=== PATIENT | female | born 1960 | race Caucasian/White ===

== ENCOUNTER → 2016-09-12 | Day surgery (SDC) | payer OTHER ==
[~2016-09-12] MED LIST: BUPIVACAINE HCL PF 0.5% 10 ML VIAL ONE; HYDR-2768 PO; KETOROLAC TROMETHAMINE 60 MG/2 ML (IM) VIAL IM ONE; LACTATED RINGER'S 1000 ML INJ 1,000 ML ONE; LISI-360 PO; MEPERIDINE HCL 25 MG/ML VIAL ONE; MIDAZOLAM HCL 2 MG/2 ML VIAL ONE; ONDANSETRON HCL 4 MG/2 ML VIAL IV PUSH ONE; PROPOFOL 200 MG/20 ML AMP IV ONE; ceFAZolin 2 GM PREMIX 50 ML ONE
--- NOTE | 2016-09-12 13:11 | TN ---
cc: GAVIOTA URIBE DATE OF SURGERY: 09/12/2016 PRINCIPAL DIAGNOSIS Recurrent lipoma of the left axilla. POSTOPERATIVE DIAGNOSIS Recurrent lipoma of the left axilla. PROCEDURE PERFORMED Excision of recurrent left axillary lipoma. SURGEON Gaviota Uribe MD ANESTHESIA General via LMA device. INDICATION The patient is a 56-year-old who is now 1 year status post excision of a large left axillary lipoma. Approximately 6 months later, she developed recurrence which was documented by imaging. Ultrasound biopsy was consistent with fatty tissue but because of enlargement and symptoms, the patient desires excision. By imaging, the current size is 5 x 4 cm and because of its rapid rate growth, I felt that excision was indicated. FINDINGS AT SURGERY A 5 cm lipoma was identified between the axillary vein and axillary artery. It was well encapsulated. PROCEDURE PERFORMED After informed consent was obtained and site verification was performed, the patient was brought to the major operating room where she underwent general anesthesia via an LMA device. She was given a single dose of IV Ancef and sequential compression hose were placed. The left axillary area was prepped and draped in sterile fashion. The previous axillary incision was anesthetized and incised sharply and electrocautery dissection was performed until the clavipectoral fascia was divided and the level I axilla was entered. The latissimus muscle was bulging and there was some suggestion of an intramuscular lipoma. The muscle was split along its fibers but there was no evidence of the fatty mass. Just medial to the muscle tendon however, fatty bulging was identified and this was bluntly dissected free from surrounding structures and identified as an encapsulated lipoma. Electrocautery was used to release some of the capsule and the pedicle of the lipoma was identified arising from between the axillary artery an axillary vein. There was scarring in this area and a less than 1 cm rim of fatty tissue was left in place as the lipoma was amputated. Good hemostasis was noted and the lipoma was oriented with one short suture superiorly, two sutures anteriorly, and one long suture laterally. The wound was then closed after reapproximating the latissimus fascia using a running 3-0 Vicryl suture. Subcutaneous layer of interrupted 3-0 Vicryl was then placed and the skin was closed with a 4-0 Monocryl subcuticular suture. Steri-Strips and a sterile dressing were applied. The patient tolerated the procedure well with minimal blood loss and she was extubated in the operating room and brought to recovery room in good condition. All sponge and needle counts were correct at the conclusion of the case. MD FÉLIX Paredes/buddy /11:31 AM /1:01 PM
== END | disposition home or self-care (01) ==
LOC: ESDC 08:27
PROVIDERS: ATTEND Surgery
DX: D17.1 Benign lipomatous neoplasm of skin and subcutaneous tissue of trunk (principal)
CPT/HCPCS: 00400; 21554; 88304; J0690; J1885; J2175; J2250; J2405; J3010; J7120

== ENCOUNTER 2018-03-31 06:24 | Observation (INO) ==
[2018-03-31] MEDS ORDERED: Gelatin Size 100 Topical Foam ONE (07:08)
[2018-03-31] MEDS ORDERED: Artificial Tears Opth Oint 3.5 GM Tube ONE ×2 (07:08→07:22)
[2018-03-31] MEDS ORDERED: Thrombin Topical Soln 5,000 UNIT Vial TOPICAL ONE (07:08)
[2018-03-31] MEDS ORDERED: ceFAZolin 1 GM Premix Inj 2 GM/100 ML PIGGYBACK IV.SIG ONE (07:08)
[2018-03-31] MEDS ORDERED: Sodium Chlor 0.9% Inj 250 ML ONE (07:15)
[2018-03-31] MEDS ORDERED: Metoprolol Tartrate 25 MG Tablet PO SCH (07:23)
[2018-03-31] MEDS ORDERED: Chlorhexidine Gluconate 2% 1 Pack (2 Cloths) TOPICAL SCH (07:23)
[2018-03-31] MEDS ORDERED: Propofol Inj 500 MG/50 ML Vial ONE (07:23)
[2018-03-31] MEDS ORDERED: fentaNYL Citrate Inj 250 MCG/5 ML Ampul ONE (07:50)
[2018-03-31] MEDS ORDERED: Vancomycin Inj 1,000 MG in Sodium Chlor 0.9% Inj 250 ML IV.SIG SCH (08:00)
[2018-03-31] MEDS ORDERED: Sodium Chlor 0.9% Inj 500 ML IV.SIG SCH (08:00)
[2018-03-31] MEDS ORDERED: Menthol 5.8 MG Lozenge BUCCAL PRN (09:51)
[2018-03-31] MEDS ORDERED: Morphine Sulfate Inj 2 MG/ML Vial IV.PUSH PRN (09:51)
[2018-03-31] MEDS ORDERED: Bisacodyl 10 MG Supp RECTAL PRN (09:51)
--- NOTE | 2018-03-31 11:58 | P.OP ---
Preoperative Diagnosis: C5-6 disk herniation Postoperative Diagnosis: C5-6 disk herniation Date of procedure: 03/31/18 Procedure: C5-6 anterior cervical discectomy, interbody arthodhesis using PEEK cage filled with autologous bone graft, Simplicity plate and screws Anesthesia: ELIJAH Surgeon: David Vivar MD Sustainability Manager: Marichuy Burnett Pathology: none sent Operation and Findings: INDICATIONS FOR THE PROCEDURE Ms Winter is a 57 year-old female who presented with intractable neck pain and clinical evidence of C6 upper extremity radiculopathy. The patient has failed maximum nonsurgical management including multiple modalities of conservative treatment. A surgical decompression and arthrodhesis were indicated. The [id number] details of the procedure, indications, alternatives, risks and potential complications were fully discussed with the patient. The patient fully understood. All The questions were answered. No guarantees were given. The patient voiced requesting the procedure and provided informed consents. The patient was offered the alternative of delaying the procedure and continuing with nonsurgical management. DETAILS OF THE SURGICAL PROCEDURE After the induction of general anesthesia, endotracheal intubation was performed. A Mendiola catheter, bilateral RADHA hose, and sequential compression devices were placed and kept throughout the procedure. The patient was positioned supine on a Allen table with the head over a gel doughnut. All pressure points were carefully padded with egg crate mattress. The eyes were tapped shut after ointment was applied by the anesthesiologist to prevent corneal abrasion. A Juancarlos hugger was placed over the exposed lower body to maintain control of the core body temperature. The electrophysiological team placed the needles and electrodes in their proper location and baseline SSEP's and motor evoked potentials were registered. The anterior cervical region was prepped and draped in the usual sterile fashion. A localizing x-ray was performed with a C-arm. The surgical procedure was performed in several steps as follow: SURGICAL APPROACH A skin incision was made along the middle cervical crease with a #10 blade. The dissection was carried out through the platysma exposing the sternocleidomastoid muscle. The cervical spine was approached following the fascial layers of the neck just medial to the anterior border of the sternocleidomastoid and carotid sheath by a combination of sharp and dull dissection. The omohyoid muscle was identified and carefully dissected laterally and the deep cervical fascia was carefully opened. The longus colli muscles were retracted to each side of the midline. A marker was placed at the disc space C5-6 and a cross-table lateral x-ray performed with a C-arm. SURGICAL DECOMPRESSION In order to decompress the anterior surface of the spinal cord it was necessary to preform a microsurgical resection of the disk. At this point in the procedure the operating microscope was draped in the usual sterile fashion and brought to the field. The rest of the surgical procedure was performed using microdissection technique with the exception of the closure. Under the operative microscopic, an anterior osteophytic spur was carefully removed using the leksell, and a self-retaining retractor was placed underneath the longus colli muscle. The annulus at C5-6 was incised with a #15 blade and microdiscectomy was then carefully carried out using angled curets and pituitary forceps. The patient had a posterior osteophytic/disk herniation complex which was producing mass affect on the anterior surface of the dural sac. This was carefully drilled with a TPS drill and resected with a think foot plate 2mm kerrison under high magnification. The posterior longitudinal ligament was then elevated with an angled curet and incised with a 15 bladed knife. A careful resection of the posterior longitudinal ligament was carried out using a thin footplate 2 mm Kerrison. The decompression was then carried out laterally, and a bilateral foraminotomy was performed with a 2mm thin foot Kerrison. Then the vertebral bodies above and below the disk space were undercut using a 2 mm thin foot Kerrison. The epidural space was the systematically assessed with a nerve hook in search for disk fragments. An excellent decompression was achieved in both, the dural sac and bilateral exiting nerve roots. The incision was then irrigated with a large amount of antibiotic solution INTERBODY ARTHRODHESIS In order to avoid collapse of the disk space which would result in bilateral foraminal stenosis, and to increase the chances of a successful fusion, it was necessary to place an interbody cage filled with autologous bone. At this point of the procedure, the superior and inferior endplates were then evenly decorticated with a TPS drill. The use of a drill in combination with a curette allowed me to systematically remove the cartilaginous endplates, exposing healthy bone for the interbody arthrodesis. forteen millimeters distraction pins were then placed at the vertebral bodies adjacent to the disk space, and gentle distraction was applied. The size of the interbody cage was then assessed using different size spacers, and a rasp was used to ensure no residual cartilage. A PEEK cage of the appropriate size was selected, and the interbody arthrodesis was then preformed by carefully impacting a PEEK cage filled with autologous bone graft to the disc space C5-6. An excellent position of the cage was achieved. This was was confirmed anatomically by feelling the space posterior to the implant and distance to the anterior surface of the dural sac. Radiological confirmation of the position was performed with a cross lateral xray performed with the C-arm. INTERNAL INSTRUMENTAL FIXATION Once that the interbody device was in an appropriate position, it was necessary to stabilize the spine with anterior instrumentation. Anterior instrumentation has demonstrated to increase the rate of fusion, acelerate the patient's recovery, and decrease the rate of failed interbody grafts. At this point of the procedure, the distance between the vertebral bodies was carefully measures, and a Simplicity plate was brought to the field and presented in front of the C5 and 6 vertebral bodies. Wafer Batter Mixer holes were then drilled using the TPS drill, and the plate was then secured to the spine using self-drilling, self-tapping screws. Initially, the inferior right screw was inserted, followed by placement of the contra lateral upper screw. The remaining screws were sequentially placed in a contra-lateral fashion. A proper purchase was achieved with all screws and the position of the cage, plate and screws, and alignment of the spine was assessed anatomically by direct visualization, and radiologically by performing a cross lateral xray of the cervical spine with the C-arm. CLOSURE The incision was irrigated with several liters of antibiotic solution. Hemostasis was achieved with a bipolar. The screws were locked to prevent backing out. A 7 mm Allen-Garcia drain was left in the prevertebral space and externalized through a separate stab incision. The incision was then closed in layers. 3-0 Vicryl with interrupted sutures was used to close the platysma and subcutaneous tissue. The skin was closed with 4-0 running subcuticular Vicryl and Dermabond was applied to the skin. The drain was secured with a 3-0 nylon. At the end of the procedure the sponge, needle and instrument counts were all correct. The estimated blood loss was less than 50 cc. No blood transfusion was given. No intraoperative complications occurred. The patient received prophylactic antibiotics. The patient was then extubated and transferred to the recovery room in stable condition.
[2018-03-31] MEDS ORDERED: fentaNYL Citrate Inj 100 MCG/2 ML Ampul ONE (12:10)
[2018-03-31] MEDS: Sod Chloride 0.9% Inj 1,000 ML IV.CONT SCH (12:45)
--- NOTE | 2018-03-31 13:42 | XR ---
EXAM DATE: 03/31/2018 1:08 PM EST AGE/SEX: 57 years / Female INDICATIONS: Post-op C5-C6 anterior cervical fusion. CLINICAL DATA: This is the patient's initial encounter. Patient reports that signs and symptoms have been present for 1 day and indicates a pain score of Nonresponsive. MEDICAL/SURGICAL HISTORY: Non-responsive. Non-responsive. COMPARISON: No prior exams available for comparison. FINDINGS: 2 images recorded digitally in the operating room with C-arm during [facility]CF. CONCLUSION: Intraoperative images. Electronically signed by: Russ Cazares MD Board Certified Radiologist 03/31/2018 1:41 PM EST
[2018-03-31] MEDS: Sod Chloride 0.9% Inj 1,000 ML IV.SIG SCH (15:46)
[2018-03-31] MEDS: ceFAZolin 2 GM Premix Inj 2 GM/50 ML PIGGYBACK IV.SIG SCH (18:34)
[2018-03-31] MEDS: Senna/Docusate Sodium 8.6/50 MG Tablet PO SCH (22:05)
[2018-04-01] MEDS: ceFAZolin 2 GM Premix Inj 2 GM/50 ML PIGGYBACK IV.SIG SCH ×2 (01:13→09:27)
[2018-04-01] MEDS: Sod Chloride 0.9% Inj 1,000 ML IV.CONT SCH ×2 (02:00→09:42)
[2018-04-01] MEDS ORDERED: Levothyroxine 112 MCG Tablet PO SCH (06:00)
[2018-04-01] MEDS ORDERED: hydroCHLOROthiazide 25 MG Tablet PO SCH (09:00)
[2018-04-01] MEDS ORDERED: Estradiol 1 MG Tablet PO SCH (09:00)
[2018-04-01] MEDS: Senna/Docusate Sodium 8.6/50 MG Tablet PO SCH (09:27)
[2018-04-01 09:35] VITALS: BP 142/72; PULSE 94; TEMP 99.1; O2SAT 93
[2018-04-01] MEDS: Sod Chloride 0.9% Inj 1,000 ML IV.SIG SCH (09:43)
--- NOTE | 2018-04-01 10:19 | P.DS ---
Date of admission: 03/31/18 09:51 Primary care physician: Scott Pretty MD Brief History from admission: Ms Winter is a 57 year-old female who presented with intractable neck pain and clinical evidence of C6 upper extremity radiculopathy. The patient has failed maximum nonsurgical management including multiple modalities of conservative treatment. A surgical decompression and arthrodhesis were indicated. DS: Summary Hospital Course: Ms. Winter is a 57 year old female who underwent a C5-6 anterior cervical discectomy, interbody arthodhesis using PEEK cage filled with autologous bone graft, Simplicity plate and screws for C5-6 disk herniation on 03/31/18. Her surgery went well without complications and she will be discharged home in stable conditions. - Time Spent with Patient Total time spent providing and/or coordinating discharge services: Less than 30 minutes - Quality: VTE Deep Vein Thrombosis/Pulmonary Embolism Present on Admission: No Exam Vital signs: Vital Signs 03/31/18 12:11 03/31/18 12:15 03/31/18 12:30 Temperature 98 F 98.4 F Pulse Rate 90 92 H 90 Respiratory Rate 14 15 Blood Pressure 130/68 127/66 130/68 Pulse Oximetry 99 95 94 L 03/31/18 12:50 03/31/18 13:00 03/31/18 13:15 Temperature Pulse Rate 89 91 H 91 H Respiratory Rate 14 14 14 Blood Pressure 127/68 135/69 129/68 Pulse Oximetry 94 L 97 96 03/31/18 15:49 03/31/18 20:00 04/01/18 00:00 Temperature 98.1 F 98.3 F 98.7 F Pulse Rate 93 H 96 H 87 Respiratory Rate 20 20 20 Blood Pressure 141/65 H 167/80 H 115/57 L Pulse Oximetry 94 L 96 98 04/01/18 04:00 04/01/18 08:00 Temperature 98.0 F 99.1 F Pulse Rate 85 94 H Respiratory Rate 20 22 Blood Pressure 154/73 H 142/72 H Pulse Oximetry 92 L 93 L Intake & Output 03/31/18 04/01/18 04/01/18 18:59 06:59 18:59 Intake Total 1900 / 1900 1100 / 1100 Output Total 350 / 350 Balance 1550 / 1550 1100 / 1100 Weight 99 kg 102.6 kg Intake: IV 100 / 100 1100 / 1100 NS Inj 1,000 ML @ 100 mls/hr IV 1000 / 1000 .CONT .Q10H [facility] Rx#:[id number] Ancef 1 GM Premix Inj 2 gm In 100 / 100 100 ml @ 0 mls/hr IV.SIG .STK- [facility] Rx#:[id number] Ancef 2 GM Premix Inj 2 gm In 100 / 100 50 ml @ 100 mls/hr IV.SIG Q8H [facility] Rx#:[id number] Anesthesia Amount 1800 / 1800 Output: Urine 350 / 350 Results Procedures completed during hospitalization: C5-6 anterior cervical discectomy, interbody arthodhesis using PEEK cage filled with autologous bone graft, Simplicity plate and screws - Impressions ITS Impressions Cervical Spine X-Ray 03/31/18 00:00 CONCLUSION: Intraoperative images. Discharge Plan - Discharge Disposition Patient Disposition: Discharge Home - Discharge Condition Condition: Stable - Discharge Order Discharge Orders: Discharge Order (Routine); Ordered 04/01/18 Ordered By: Rosette Rubin - Physicians Team Primary Care Provider: Scott Pretty Attending Provider: David Vivar - Rxs /Orders / Referrals /Forms Prescriptions: Continue estradiol 1 mg Tablet 1 mg PO DAILY hydrochlorothiazide 25 mg Tablet 25 mg PO DAILY ibuprofen 200 mg Tablet 400 mg PO QID PRN (Reason: Pain) levothyroxine 112 mcg Tablet 112 mcg PO DAILY losartan 25 mg Tablet 25 mg PO DAILY lovastatin 10 mg Tablet 10 mg PO DAILY medroxyprogesterone 10 mg Tablet 10 mg PO DAILY Referrals: Scott Pretty MD [Primary Care Provider] - See Instructions - Discharge Instructions Patient Printed Instructions: Laminectomy (DC)
[2018-04-01 11:27] VITALS: RESP 18
== END 2018-04-01 11:39 | disposition home or self-care (01) ==
LOC: HSDI 06:24 → HSDC 06:24 → N05 13:42
PROVIDERS: ADMIT Neurological Surgery; ATTEND Neurological Surgery